=== PATIENT | female | born 1970 | race Caucasian/White ===

== ENCOUNTER 2021-01-17 14:42 | Outpatient (CLI) | payer BC | END 2021-01-17 14:43 | disposition home or self-care (01) | LOC: TBSIIMAG 14:42 | PROVIDERS: ATTEND Neurological Surgery | DX: M54.5 Low back pain (principal); M25.552 Pain in left hip | CPT/HCPCS: 72100 ==

== ENCOUNTER 2021-03-03 15:56 | Outpatient (CLI) | payer BC | END 2021-03-03 15:57 | disposition home or self-care (01) | LOC: BICULT 15:56 | PROVIDERS: ATTEND Physician Assistant | DX: R10.2 Pelvic and perineal pain (principal); Z90.710 Acquired absence of both cervix and uterus; Z90.721 Acquired absence of ovaries, unilateral | CPT/HCPCS: 76856 ==

== ENCOUNTER 2021-03-17 07:52 | Outpatient (CLI) | payer BC | END 2021-03-17 07:53 | disposition home or self-care (01) | LOC: BICMAMMO 07:52 | PROVIDERS: ATTEND Physician Assistant | DX: Z12.31 Encounter for screening mammogram for malignant neoplasm of breast (principal); R10.2 Pelvic and perineal pain; Z90.710 Acquired absence of both cervix and uterus; Z90.721 Acquired absence of ovaries, unilateral | CPT/HCPCS: 76856; 77063; 77067 ==

== ENCOUNTER 2022-03-30 09:27 | Outpatient (CLI) | payer BC | END 2022-03-30 09:28 | disposition home or self-care (01) | LOC: BICMAMMO 09:27 | PROVIDERS: ATTEND Physician Assistant | DX: Z12.31 Encounter for screening mammogram for malignant neoplasm of breast (principal) | CPT/HCPCS: 77063; 77067 ==

== ENCOUNTER 2023-05-23 10:50 | Outpatient (CLI) | payer BC | END 2023-05-23 10:51 | disposition home or self-care (01) | LOC: BICMAMMO 10:50 | PROVIDERS: ATTEND Physician Assistant | DX: Z12.31 Encounter for screening mammogram for malignant neoplasm of breast (principal) | CPT/HCPCS: 77063; 77067 ==

== ENCOUNTER 2024-06-05 14:59 | Outpatient (CLI) | payer BC | END 2024-06-05 15:00 | disposition home or self-care (01) | LOC: BICMAMMO 14:59 | DX: Z12.31 Encounter for screening mammogram for malignant neoplasm of breast (principal) | CPT/HCPCS: 77063; 77067 ==

== ENCOUNTER 2025-06-09 11:51 | Outpatient (CLI) | payer BC | END 2025-06-09 11:52 | disposition home or self-care (01) | LOC: ULT 11:51 | PROVIDERS: ATTEND Family Medicine | DX: R10.A3 Flank pain, bilateral (principal) | CPT/HCPCS: 76770 ==

== ENCOUNTER 2025-06-29 10:18 | Outpatient (CLI) | payer BC | END 2025-06-29 10:19 | disposition home or self-care (01) | LOC: BICMAMMO 10:18 | PROVIDERS: ATTEND Family Medicine | DX: Z12.31 Encounter for screening mammogram for malignant neoplasm of breast (principal) | CPT/HCPCS: 77063; 77067 ==